=== PATIENT | male | born 1995 | race Caucasian/White ===

== ENCOUNTER 2022-01-08 13:13 | Emergency (ER) | payer OTHER, SELFPAY ==
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
[2022-01-08 13:20] VITALS: BP 109/74; PULSE 76; RESP 18; TEMP 36.8; O2SAT 100
[2022-01-08] MEDS: ACETAMINOPHEN 500 MG TABLET 1000 MG PO (16:10)
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
== END 2022-01-08 16:46 | disposition home or self-care (01) ==
LOC: ANHED 16:42
PROVIDERS: Emergency Provider Emergency Medicine; PCP Family Medicine
DX: S06.0X0A Concussion without loss of consciousness, initial encounter (principal); V49.49XA Driver injured in collision with other motor vehicles in traffic accident, initial encounter
CPT/HCPCS: 70450; 99284; A9270